=== PATIENT | male | born 1980 | race Two or more races ===

== ENCOUNTER 2016-03-14 09:31 | Outpatient (CLI) | payer OTHER | END 2016-03-14 09:32 | disposition home or self-care (01) | DX: G47.30 Sleep apnea, unspecified (principal); G47.8 Other sleep disorders; G47.10 Hypersomnia, unspecified; R06.83 Snoring ==

== ENCOUNTER 2016-03-31 19:29 | Outpatient (CLI) | payer OTHER | END 2016-03-31 19:30 | disposition home or self-care (01) | DX: G47.33 Obstructive sleep apnea (adult) (pediatric) (principal); Z68.27 Body mass index [BMI] 27.0-27.9, adult ==

== ENCOUNTER 2016-05-01 13:59 | Outpatient (CLI) | payer OTHER | END 2016-05-01 14:00 | disposition home or self-care (01) | DX: G47.33 Obstructive sleep apnea (adult) (pediatric) (principal) ==

== ENCOUNTER 2016-05-12 19:12 | Outpatient (CLI) | payer OTHER | END 2016-05-12 19:13 | disposition home or self-care (01) | DX: G47.33 Obstructive sleep apnea (adult) (pediatric) (principal); Z68.27 Body mass index [BMI] 27.0-27.9, adult ==

== ENCOUNTER 2016-05-23 14:10 | Outpatient (CLI) | payer OTHER | END 2016-05-23 14:11 | disposition home or self-care (01) | DX: G47.33 Obstructive sleep apnea (adult) (pediatric) (principal) ==

== ENCOUNTER 2016-07-16 13:11 | Outpatient (CLI) | payer OTHER | END 2016-07-16 13:12 | disposition home or self-care (01) | LOC: SC 13:11 | PROVIDERS: ATTEND Nurse Practitioner Family | DX: G47.33 Obstructive sleep apnea (adult) (pediatric) (principal) | CPT/HCPCS: 99212; 99214 ==

== ENCOUNTER 2016-08-20 10:35 | Outpatient (CLI) | payer OTHER | END 2016-08-20 10:36 | disposition home or self-care (01) | LOC: SC 10:35 | PROVIDERS: ATTEND Nurse Practitioner Family | DX: G47.33 Obstructive sleep apnea (adult) (pediatric) (principal) | CPT/HCPCS: 99212; 99214 ==

== ENCOUNTER 2016-09-17 13:44 | Outpatient (CLI) | payer OTHER | END 2016-09-17 13:45 | disposition home or self-care (01) | LOC: SC 13:44 | PROVIDERS: ATTEND Nurse Practitioner Family | DX: G47.33 Obstructive sleep apnea (adult) (pediatric) (principal) | CPT/HCPCS: 99212; 99214 ==

== ENCOUNTER 2016-10-30 15:13 | Outpatient (CLI) | payer OTHER | END 2016-10-30 15:14 | disposition home or self-care (01) | LOC: SC 15:13 | PROVIDERS: ATTEND Nurse Practitioner Family | DX: G47.33 Obstructive sleep apnea (adult) (pediatric) (principal) | CPT/HCPCS: 99212; 99214 ==

== ENCOUNTER 2016-12-31 15:01 | Outpatient (CLI) | payer OTHER | END 2016-12-31 15:02 | disposition home or self-care (01) | LOC: SC 15:01 | PROVIDERS: ATTEND Nurse Practitioner Family | DX: G47.33 Obstructive sleep apnea (adult) (pediatric) (principal) | CPT/HCPCS: 99212; 99213 ==

== ENCOUNTER 2017-02-11 15:39 | Outpatient (CLI) | payer OTHER | END 2017-02-11 15:40 | disposition home or self-care (01) | LOC: SC 15:39 | PROVIDERS: ATTEND Nurse Practitioner Family | DX: G47.33 Obstructive sleep apnea (adult) (pediatric) (principal) | CPT/HCPCS: 99212; 99214 ==

== ENCOUNTER 2017-05-15 15:04 | Outpatient (CLI) | payer OTHER | END 2017-05-15 15:05 | disposition home or self-care (01) | LOC: SC 15:04 | PROVIDERS: ATTEND Nurse Practitioner Family | DX: G47.33 Obstructive sleep apnea (adult) (pediatric) (principal) | CPT/HCPCS: 99212; 99213 ==